=== PATIENT | male | born 1945 | race Caucasian/White ===

== ENCOUNTER → 2018-07-11 | Outpatient (CLI) | payer MEDICARE, OTHER ==
--- NOTE | 2018-07-11 22:11 | XCELERA REPORT ---
[address] [address] Transthoracic Echocardiogram Report Name: TASIA WELLS SR Age: 73 yrs Gender: Male : 1945 Patient Status: Outpatient Patient Location: Study Date: 07/11/2018 09:12 AM Height: 70 in Weight: 208 lb BSA: 2.1 m2 Procedure: A complete two-dimensional transthoracic echocardiogram was performed (2D, M-mode, spectral and color flow Doppler). The study was technically adequate with some images being suboptimal in quality. Reason For Study: AFIB Ordering Physician: TRINO MCALLISTER Performed By: Joel Lux Interpretation Summary The left ventricular ejection fraction is normal. There is borderline concentric left ventricular hypertrophy. Doppler measurements suggest pseudonormalized left ventricular relaxation, which is associated with grade II/IV or mild to moderate diastolic dysfunction Wall motion cannot be accurately commented on, but no definite regional wall motion abnormalities noted. The left ventricle is normal in size. The right ventricular systolic function is normal. The left atrium is moderately dilated. The right atrium is normal in size There is a trace to mild amount of mitral regurgitation There is no mitral valve stenosis. No aortic regurgitation is present. There is no aortic valve stenosis There is a trace to mild amount of tricuspid regurgitation There is moderate pulmonary hypertension by echo Right ventricular systolic pressure is estimated to be elevated at 40-50mmHg. The aortic root is not well visualized but is probably normal size. The inferior vena cava appeared normal and decreased > 50% with respiration (RAP 5-10 mmHg) There is no pericardial effusion. MMode/2D Measurements & Calculations RVDd: 2.9 cm LVIDd: 5.1 cm FS: 41.2 % Ao root diam: 2.9 cm IVSd: 1.2 cm LVIDs: 3.0 cm EDV(Teich): 125.2 ml Ao root area: 6.7 cm2 LVPWd: 1.2 cm ESV(Teich): 35.4 ml LA dimension: 3.1 cm EF(Teich): 71.7 % Doppler Measurements & Calculations MV E max corrina: MV P1/2t max corrina: Ao V2 max: LV V1 max P.9 cm/sec 92.9 cm/sec 139.1 cm/sec 3.4 mmHg MV A max corrina: MV P1/2t: 67.4 msec Ao max P.7 mmHg LV V1 max: 78.5 cm/sec MVA(P1/2t): 3.3 cm2 92.1 cm/sec MV E/A: 1.1 MV dec slope: 403.8 cm/sec2 MV dec time: 0.18 sec PA V2 max: TR max corrina: MV P1/2t-pr_phl: 87.9 cm/sec 415.3 cm/sec 67.4 msec PA max PG: TR max P.0 mmHg 3.1 mmHg Left Ventricle The left ventricle is normal in size. There is borderline concentric left ventricular hypertrophy. The left ventricular ejection fraction is normal. Doppler measurements suggest pseudonormalized left ventricular relaxation, which is associated with grade II/IV or mild to moderate diastolic dysfunction. Wall motion cannot be accurately commented on, but no definite regional wall motion abnormalities noted. Right Ventricle The right ventricle is grossly normal size. There is normal right ventricular wall thickness. The right ventricular systolic function is normal. Atria The right atrium is normal in size. The left atrium is moderately dilated. Interarterial septum not well visualized and not well dopplered. Cannot comment on ASD/PFO presence. Mitral Valve The mitral valve leaflets are sclerotic, but show no functional abnormalities. There is no mitral valve stenosis. There is a trace to mild amount of mitral regurgitation. Aortic Valve The aortic valve is grossly normal. There is no aortic valve stenosis. No aortic regurgitation is present. Tricuspid Valve The tricuspid valve is not well visualized, but is grossly normal. There is no tricuspid stenosis. There is a trace to mild amount of tricuspid regurgitation. There is moderate pulmonary hypertension by echo. Right ventricular systolic pressure is estimated to be elevated at 40-50mmHg. Pulmonic Valve The pulmonic valve is not well visualized. Great Vessels The aortic root is not well visualized but is probably normal size. The inferior vena cava appeared normal and decreased > 50% with respiration (RAP 5-10 mmHg). Effusions There is no pericardial effusion. : TRINO MCALLISTER > Christin Huff
== END ==
LOC: SP 08:40
PROVIDERS: ATTEND Internal Medicine
DX: I48.91 Unspecified atrial fibrillation (principal)
CPT/HCPCS: 93306

== ENCOUNTER → 2018-07-12 | Outpatient (CLI) | payer MEDICARE, OTHER ==
--- NOTE | 2018-07-12 23:02 | DRAGON STRESS TEST REPORT ---
Exercise EKG treadmill Cardiolite stress test using SPECT. Data procedure: 07/12/2018. Ordering Physician: Dr. Jozef Rodrigez. PATIENT STATUS: Outpatient. Indication:: Abnormal EKG. Coronary risk factors:. Age, diabetes mellitus, and hypertension. Significant physical findings prior to stress testing show a blood pressure of , 153/94 and a heart rate of 96 beats per minute. Auscultation of the heart shows normal S1 and S2. S1 is of variable intensity. No S3 or S4 gallops. Systolic murmur in the left sternal border and apex. Lungs are clear to auscultation and percussion. Resting 12-lead EKG:. T atrial fibrillation, with controlled ventricular response. Poor R wave progression leads V1 to V6. Procedure: The patient was excised on a standard Satinder protocol. . The patient walked a total of 5 minutes and 03 seconds on this protocol and reached a peak heart rate of 141 beats per minute, which is 94% of maximum predicted heart rate for age. This is at a workload of 7.00 METS. The test was stopped because of achievement of more than 85% of maximum predicted heart rate for age.. The patient described no symptoms of chest pain/discomfor. Exercise EKG's show: There is no EKG evidence of exercise-induced myocardial ischemia. Arrhythmias seen: No ventricular arrhythmia seen. No high-grade AV blocks or pauses.. The blood pressure response was At peak exercise the blood pressure was 147/92 millimeters of Hg. The double product was 20.4 K. Summary of findings and interpretation: 1. No chest pain or chest discomfort symptoms reproduced. 2. No EKG evidence of ischemia in the form of ST segment depression. 3. Normal blood pressure response. 4. No ventricular arrhythmias seen. No high-grade AV blocks or pauses seen. 5. Fair exercise tolerance, fair aerobic capacity. Diagnostic treadmill stress test negative for ischemia by EKG criteria. Recommendations: Correlate with nuclear Cardiolite images. Nuclear data: At rest the patient was given 14.71 millicuries of technetium 99 sestamibi, and as per protocol rest none gated SPECT images were obtained. The patient was exercised on a treadmill [see exercise physiology]. One minute prior to termination of exercise, 43.8 millicuries of technetium and there sestamibi was injected intravenously. As per protocol stress gated images were obtained. Impression: Review of images show that all segments of the myocardium had normal perfusion at rest, and normal perfusion post exercise. All segments of the myocardium had normal motion, contraction, and thickening by gated study. T. I D. ratio was[1.06. There was no transient ischemic dilatation of the left ventricle. The computer read rest and stress left ventricular ejection fractions were 61 %, and 60 % respectively. Visually both the ejection fractions were normal in excess of 55%. Conclusions: 1. No clinical symptoms of exercise-induced myocardial ischemia at a peak heart rate of 141 beats per minute, patient having achieved 94 % of maximum predicted heart rate for age, at a workload of 7.00 METS. 2. No EKG evidence of exercise-induced myocardial ischemia. 3. No ventricular arrhythmias seen. No high-grade AV blocks or pauses seen. 4.No scintigraphic evidence of exercise-induced myocardial ischemia. 5.No scintigraphic evidence of myocardial infarction/scar. Recommendations Aggressive coronary risk factor modification, and treatment of underlying comorbidities MTDD
== END ==
LOC: RAD 06:40
PROVIDERS: ATTEND Internal Medicine
DX: I48.91 Unspecified atrial fibrillation (principal)
CPT/HCPCS: 93017; 78452; A9500; Q9969